=== PATIENT | female | born 1970 | race Caucasian/White ===

== ENCOUNTER → 2017-05-19 | Outpatient (CLI) | payer OTHER | LOC: LAB 14:44 | DX: Z01.419 Encounter for gynecological examination (general) (routine) without abnormal findings (principal); E11.65 Type 2 diabetes mellitus with hyperglycemia; D50.0 Iron deficiency anemia secondary to blood loss (chronic) ==

== ENCOUNTER → 2017-10-15 | Outpatient (CLI) | payer BC | LOC: RAD 12:20 | DX: M77.32 Calcaneal spur, left foot (principal) ==

== ENCOUNTER → 2017-10-28 | Outpatient (CLI) | payer BC ==
[2017-10-28 15:28] LABS: EOS # 0.3 (0.04-0.40); EOS % 4.1 % (1.0-5.0); HEMATOCRIT 40.3 % (37.0-47.0); HEMOGLOBIN 12.6 g/dL (12.5-16.0); LYMPH# 1.9 (1.50-4.00); MEAN CELL VOLUME 80 fl (78-100); MEAN CORPUSCULAR HEMOGLOBIN 25 pg (27-31); MEAN CORPUSCULAR HGB CONC 31 g/dL (33-37); MEAN PLATELET VOLUME 10.6 fl (7.4-10.4); MONO # 0.5 (0.20-0.80); PLATELET COUNT 269 K/mm3 (130-400); RED BLOOD COUNT 5.03 M/mm3 (4.10-5.30); RED CELL DISTRIBUTION WIDTH 15.1 % (11.5-14.5); WHITE BLOOD COUNT 7.8 K/mm3 (4.8-10.8)
[2017-10-28 15:33] LABS: ALBUMIN 4.1 g/dL (3.5-5.0); BUN/CREATININE RATIO 27.4 (6.0-26.0); CALCIUM 9.2 mg/dL (8.4-10.2); POTASSIUM 3.6 mmol/L (3.6-5.0); TOTAL BILIRUBIN 1.1 mg/dL (0.2-1.3); TOTAL PROTEIN 7.4 g/dL (6.3-8.2)
[2017-10-28 16:47] LABS: ERYTHROCYTE SEDIMENTATION RATE 37 mm/hr (0-20)
== END ==
LOC: LAB 14:30
PROVIDERS: Nurse Practitioner Family
DX: Z00.00 Encounter for general adult medical examination without abnormal findings (principal); E11.9 Type 2 diabetes mellitus without complications; I10 Essential (primary) hypertension; N91.1 Secondary amenorrhea; H10.11 Acute atopic conjunctivitis, right eye; F41.1 Generalized anxiety disorder; M25.572 Pain in left ankle and joints of left foot

== ENCOUNTER → 2017-11-18 | Outpatient (CLI) | payer BC | LOC: MAMMO 08:51 → RAD 09:15 → MAMMO 09:15 | DX: Z12.31 Encounter for screening mammogram for malignant neoplasm of breast (principal); Z88.2 Allergy status to sulfonamides; Z88.8 Allergy status to other drugs, medicaments and biological substances ==

== ENCOUNTER → 2018-02-19 | Outpatient (CLI) | payer BC | LOC: LAB 10:56 | DX: E11.9 Type 2 diabetes mellitus without complications (principal) ==

== ENCOUNTER → 2018-06-01 | Outpatient (CLI) | payer BC | LOC: LAB 16:37 | DX: E11.9 Type 2 diabetes mellitus without complications (principal) ==

== ENCOUNTER → 2018-10-07 | Outpatient (CLI) | payer BC ==
[2018-10-07 16:36] LABS: EOS # 0.3 (0.04-0.40); EOS % 3.7 % (1.0-5.0); HEMATOCRIT 38.7 % (37.0-47.0); HEMOGLOBIN 12.2 g/dL (12.5-16.0); LYMPH# 1.6 (1.50-4.00); MEAN CELL VOLUME 83 fl (78-100); MEAN CORPUSCULAR HEMOGLOBIN 26 pg (27-31); MEAN CORPUSCULAR HGB CONC 32 g/dL (33-37); MEAN PLATELET VOLUME 10.7 fl (7.4-10.4); MONO # 0.5 (0.20-0.80); NEU # 5.1 (1.40-6.50); PLATELET COUNT 271 K/mm3 (130-400); RED BLOOD COUNT 4.68 M/mm3 (4.10-5.30); RED CELL DISTRIBUTION WIDTH 15.1 % (11.5-14.5); WHITE BLOOD COUNT 7.5 K/mm3 (4.8-10.8)
[2018-10-07 16:48] LABS: ALBUMIN 4.3 g/dL (3.5-5.0); CALCIUM 8.9 mg/dL (8.4-10.2); POTASSIUM 4.2 mmol/L (3.6-5.0); TOTAL BILIRUBIN 0.6 mg/dL (0.2-1.3); TOTAL PROTEIN 7.5 g/dL (6.3-8.2)
== END ==
LOC: LAB 15:54
PROVIDERS: Family Medicine
DX: E11.9 Type 2 diabetes mellitus without complications (principal); M54.16 Radiculopathy, lumbar region; G89.29 Other chronic pain; F41.1 Generalized anxiety disorder

== ENCOUNTER → 2019-08-18 | Outpatient (CLI) | payer BC ==
[2019-08-18 08:08] LABS: ALBUMIN 3.8 g/dL (3.5-5.0); POTASSIUM 4.7 mmol/L (3.5-5.1)
[2019-08-18 08:09] LABS: CALCIUM 9.2 mg/dL (8.3-10.5)
[2019-08-18 08:11] LABS: TOTAL PROTEIN 7.4 g/dL (6.4-8.3)
[2019-08-18 08:12] LABS: TOTAL BILIRUBIN 0.6 mg/dL (0.2-1.2)
== END ==
LOC: LAB 07:43
PROVIDERS: Family Medicine
DX: E11.9 Type 2 diabetes mellitus without complications (principal); M54.16 Radiculopathy, lumbar region; F41.1 Generalized anxiety disorder

== ENCOUNTER → 2019-09-12 | Outpatient (CLI) | payer BC | LOC: MAMMO 15:56 | DX: Z12.31 Encounter for screening mammogram for malignant neoplasm of breast (principal); N64.89 Other specified disorders of breast ==

== ENCOUNTER → 2019-09-14 | Outpatient (CLI) | payer BC | LOC: MAMMO 12:10 | DX: R92.2 Inconclusive mammogram (principal) ==

== ENCOUNTER → 2019-11-18 | Outpatient (CLI) | payer BC ==
[2019-11-18 10:00] LABS: EOS # 0.3 (0.04-0.40); HEMATOCRIT 42.2 % (37.0-47.0); HEMOGLOBIN 12.8 g/dL (12.5-16.0); LYMPH# 1.6 (1.50-4.00); MEAN CELL VOLUME 84 fl (78-100); MEAN CORPUSCULAR HEMOGLOBIN 25 pg (27-31); MEAN CORPUSCULAR HGB CONC 30 g/dL (33-37); MEAN PLATELET VOLUME 10.5 fl (7.4-10.4); MONO # 0.5 (0.20-0.80); NEU # 4.4 (1.40-6.50); PLATELET COUNT 290 K/mm3 (130-400); RED BLOOD COUNT 5.04 M/mm3 (4.10-5.30); RED CELL DISTRIBUTION WIDTH 15.5 % (11.5-14.5); WHITE BLOOD COUNT 6.8 K/mm3 (4.8-10.8)
== END ==
LOC: LAB 09:32
PROVIDERS: Family Medicine
DX: E11.9 Type 2 diabetes mellitus without complications (principal); M54.16 Radiculopathy, lumbar region; F41.1 Generalized anxiety disorder

== ENCOUNTER → 2020-03-29 | Outpatient (CLI) | payer BC | LOC: LAB 16:29 | DX: E11.9 Type 2 diabetes mellitus without complications (principal); M54.16 Radiculopathy, lumbar region; F41.1 Generalized anxiety disorder ==

== ENCOUNTER → 2022-01-03 | Outpatient (CLI) | payer BC ==
[2022-01-03 09:14] LABS: BASO # 0.03 K/mm3 (0.02-0.10); EOS % 3.1 % (1.0-5.0); HEMATOCRIT 42.9 % (37.0-47.0); LYMPH# 1.71 K/mm3 (1.50-4.00); MEAN CELL VOLUME 82 fl (78-100); MEAN CORPUSCULAR HEMOGLOBIN 27 pg (27-31); MEAN CORPUSCULAR HGB CONC 33 g/dL (33-37); MEAN PLATELET VOLUME 10.1 fl (7.4-10.4); MONO # 0.43 K/mm3 (0.20-0.80); NEU # 3.97 K/mm3 (1.40-6.50); PLATELET COUNT 258 K/mm3 (130-400); RED BLOOD COUNT 5.24 M/mm3 (4.10-5.30); WHITE BLOOD COUNT 6.4 K/mm3 (4.8-10.8)
[2022-01-03 09:44] LABS: POTASSIUM 4.5 mmol/L (3.5-5.1)
[2022-01-03 09:45] LABS: ALBUMIN 3.8 g/dL (3.5-5.0)
[2022-01-03 09:46] LABS: CALCIUM 8.6 mg/dL (8.3-10.5)
[2022-01-03 09:47] LABS: TOTAL PROTEIN 6.8 g/dL (6.4-8.3)
[2022-01-03 09:49] LABS: TOTAL BILIRUBIN 1.2 mg/dL (0.2-1.2)
== END ==
LOC: LAB 08:34
PROVIDERS: Family Medicine
DX: Z00.00 Encounter for general adult medical examination without abnormal findings (principal); E78.5 Hyperlipidemia, unspecified; E11.9 Type 2 diabetes mellitus without complications; E55.9 Vitamin D deficiency, unspecified

== ENCOUNTER → 2022-12-30 | Outpatient (CLI) | payer BC ==
[2022-12-30 17:50] LABS: BASO # 0.03 K/mm3 (0.02-0.10); EOS # 0.19 K/mm3 (0.04-0.40); EOS % 2.1 % (1.0-5.0); HEMATOCRIT 42.6 % (37.0-47.0); HEMOGLOBIN 13.5 g/dL (12.5-16.0); LYMPH# 2.03 K/mm3 (1.50-4.00); MEAN CELL VOLUME 86 fl (78-100); MEAN CORPUSCULAR HEMOGLOBIN 27 pg (27-31); MEAN CORPUSCULAR HGB CONC 32 g/dL (33-37); MEAN PLATELET VOLUME 9.6 fl (7.4-10.4); MONO # 0.52 K/mm3 (0.20-0.80); NEU # 6.02 K/mm3 (1.40-6.50); PLATELET COUNT 317 K/mm3 (130-400); RED BLOOD COUNT 4.94 M/mm3 (4.10-5.30); RED CELL DISTRIBUTION WIDTH 13.9 % (11.5-14.5); WHITE BLOOD COUNT 8.9 K/mm3 (4.8-10.8)
[2022-12-30 17:54] LABS: POTASSIUM 4.5 mmol/L (3.5-5.1)
[2022-12-30 17:55] LABS: CALCIUM 10.2 mg/dL (8.3-10.5)
[2022-12-30 17:56] LABS: TOTAL PROTEIN 7.1 g/dL (6.4-8.3)
[2022-12-30 17:58] LABS: TOTAL BILIRUBIN 0.7 mg/dL (0.2-1.2)
== END ==
LOC: LAB 17:25
PROVIDERS: Family Medicine
DX: Z00.00 Encounter for general adult medical examination without abnormal findings (principal); I10 Essential (primary) hypertension; E78.5 Hyperlipidemia, unspecified; F34.1 Dysthymic disorder; F41.1 Generalized anxiety disorder; E66.9 Obesity, unspecified; E11.9 Type 2 diabetes mellitus without complications

== ENCOUNTER → 2023-08-03 | Outpatient (CLI) | payer BC ==
[2023-08-03 15:55] LABS: POTASSIUM 4.2 mmol/L (3.5-5.1)
[2023-08-03 15:56] LABS: CALCIUM 9.6 mg/dL (8.3-10.5)
[2023-08-03 15:57] LABS: TOTAL PROTEIN 7.5 g/dL (6.4-8.3)
[2023-08-03 15:59] LABS: TOTAL BILIRUBIN 0.6 mg/dL (0.2-1.2)
== END ==
LOC: LAB 14:58
PROVIDERS: Family Medicine
DX: F34.1 Dysthymic disorder (principal); F41.1 Generalized anxiety disorder; I10 Essential (primary) hypertension; E66.9 Obesity, unspecified; E11.9 Type 2 diabetes mellitus without complications